=== PATIENT | female | born 1965 | race Caucasian/White ===

== ENCOUNTER 2024-12-19 18:50 | Emergency (ER) | payer BC, SELFPAY ==
[2024-12-19 18:54] VITALS: BP 142/82; PULSE 88; RESP 18; TEMP 36.7; O2SAT 99; BMI 28.5
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
[2024-12-19 19:51] VITALS: BP 132/56; PULSE 82; RESP 16; O2SAT 97
[2024-12-19 20:00] VITALS: BP 132/56; RESP 16
[2024-12-19 21:00] VITALS: BP 118/63; PULSE 81; RESP 16; O2SAT 95
[2024-12-19 22:00] VITALS: BP 119/70; PULSE 82; O2SAT 99
--- NOTE | 2024-12-19 22:13 | ED.RN ---
Called Ct about the delay in CT read. Reply was it is next in line to be read.
[2024-12-19 22:16] VITALS: BP 119/70; PULSE 82; RESP 16; TEMP 36.7; O2SAT 99
== END 2024-12-19 22:30 | disposition home or self-care (01) ==
PROVIDERS: Emergency Provider Emergency Medicine; Visit Provider Emergency Medicine
DX: S00.33XA Contusion of nose, initial encounter (principal); V43.62XA Car passenger injured in collision with other type car in traffic accident, initial encounter; W22.12XA Striking against or struck by front passenger side automobile airbag, initial encounter; Z87.891 Personal history of nicotine dependence
CPT/HCPCS: 70486; 99284